=== PATIENT | female | born 1935 | race Caucasian/White ===

== ENCOUNTER 2016-09-21 11:13 | Outpatient (CLI) ==
[2016-02-17 16:18] VITALS: BMI 15.2
--- NOTE | 2016-09-21 11:53 | DI ---
EXAM: Three views of the left hand. History: Left hand pain and trauma. Findings: No acute fracture or dislocation. Moderate to severe narrowing of the first carpal metac arpal joint. Mild to moderate narrowing of the joints seen elsewhere with small osteophytes of the DIP joints. Impression: No acute osseous abnormality. Arthritis.
== END 2016-09-21 11:14 | disposition home or self-care (01) ==
LOC: RAD 11:13
PROVIDERS: ATTEND Internal Medicine
DX: M79.642 Pain in left hand (principal)

== ENCOUNTER 2023-10-07 10:39 | Observation (INO) ==
--- NOTE | 2023-10-07 10:46 | ED.PDOC ---
General ED Provider: Dr. ARYAN DRAKE MD Chief Complaint: Weakness Stated Complaint: Patient presents to ER from home accompanied by her friend (Shaneka Holcomb) with concern of recurrent falls. Patient is a poor historian due to advanced dementia. Upon chart review, most recent MMSE was 10 out of 30 on 06/17/2023. Patient's friend notes that this has significantly worsened in the past couple weeks once her was placed on hospice. Says she was contacted by her 's hospice nurse with concern of patient having a fall yesterday and striking her head. Patient denies pain at this time except for bilateral hip pain. Patient's friend reports she has a history of arthritis and is supposed to be using a front wheeled walker at home but very rarely does due to severe dementia. No other complaints at this time. Time Seen by Provider: 10/07/23 11:10 Mode of Arrival: Wheelchair Information Source: Patient and Other (Friend) Exam Limitations: Dementia (Severe) Primary Care Provider: SHAD CRUZ MD Nursing and Triage Documentation Reviewed and Agree: Yes What is Opioid Naive?: *Opioid Naive implies the patient is not already taking opioids or not chronically receiving opioids on a daily basis. *PRN dosing is not "usually" associated with tolerance. *Patients are at higher risk of over-sedation and aspiration. What is Opioid Tolerant?: *Opioid Tolerance implies less than the expected response to an opioid. *Acquired tolerance is defined by the patient taking 60mg of oral morphine daily (or equianalgesic dose of another opioid) for 1 week or more. *Often associated with chronic pain. *May take more than usual dose to achieve desired pain control. Review of Systems Review Of Systems Constitutional: Reports No symptoms All Other Systems: Reviewed and Negative (Except for those listed in the HPI.) [facility] Medical History Mass of right lung History/ with consolidation R91.8 - Other nonspecific abnormal finding of lung field (ICD-10) Anxiety F41.9 - Anxiety disorder, unspecified (ICD-10) Family History Mother No problems noted. FATHER No problems noted. Other No known health problems Social History Smoking and tobacco status: Current some day smoker Tobacco type: cigarettes Tobacco: How many years used: 5 Quit status: not considering quitting Alcohol intake: never Substance use type: does not use Special arelis needs: No Agree to transfusion: Yes Adopted: No Caregiver/support person: No Foster care: No Household members: spouse and family Housing: house Marital status: M Lives independently: Yes Number of children: 3 service: No Current occupational status: retired History of recent travel: No Do you think of yourself as: straight/heterosexual Current gender identity: female Seatbelt use: always Drives intoxicated or rides with intoxicated driver utility worker: No Water heater temperature set < 120 degrees: Yes Working smoke detector in home: Yes Fire extinguisher in home: Yes Carbon monoxide detector in home: No Surgical History Hx of hysterectomy Z90.710 - Acquired absence of both cervix and uterus (ICD-10) Female Reproductive History Menstrual Hx Hysterectomy: No Hx Tubal Ligation: Yes Physical Exam Physical Exam Appearance: Reports Ill-appearing (Chronic), No pain distress and Well-nourished Ill-appearing: Mild Pain Distress: None Eyes: Reports HERMELINDA and EOMI ENT: Reports Ears normal, Nose normal and Oropharynx normal Neck: Supple Respiratory: Reports Airway patent, Breath sounds clear, Breath sounds equal and Respirations nonlabored Cardiovascular: Reports RRR and Pulses normal GI/: Reports Soft and Nontender Musculoskeletal: Reports ROM intact, No edema and Limited strength (BLE: 3/5 strength) Skin: Reports Warm, Dry and Normal color Neurological: Reports Sensation intact, Motor intact, Alert and Oriented Psychiatric: Reports Affect appropriate and Mood appropriate Course Course 10/07/23 12:02 10/07/23 12:02 Orders, Labs, Meds: Lab Review 10/07/23 10/07/23 10/07/23 12:02 13:00 13:12 WBC 11.22 H RBC 4.63 Hgb 14.7 Hct 46.1 MCV 99.6 H MCH 31.7 H MCHC 31.9 RDW Coeff of Gracie 13.2 Plt Count 210 Immature Gran % (Auto) 0.3 Neut % (Auto) 82.2 H Lymph % (Auto) 10.2 Glascock % (Auto) 6.8 Eos % (Auto) 0.1 Baso % (Auto) 0.4 Neut # (Auto) 9.2 H Lymph # (Auto) 1.1 Glascock # (Auto) 0.8 Eos # (Auto) 0.0 Baso # (Auto) 0.0 Immature Gran # (Auto) 0.0 Sodium 137.0 Potassium 4.10 Chloride 99.0 Carbon Dioxide 28.0 Anion Gap 14.10 BUN 13.0 Creatinine 0.50 L Estimated GFR (MDRD) 117.00 BUN/Creatinine Ratio 26.00 Glucose 115.0 H Calcium 9.00 Total Bilirubin 0.90 AST 36.0 ALT 22.0 Alkaline Phosphatase 140.0 Total Protein 7.50 Albumin 3.70 Globulin 3.80 Albumin/Globulin Ratio 0.97 Urine Color Dark Urine Clarity Clear Urine pH 6.5 Ur Specific Fourmile >=1.030 Urine Protein 3+ H Urine Glucose (UA) Negative Urine Ketones 2+ H Urine Blood Trace-intact H Urine Nitrite Negative Urine Bilirubin 1+ H Urine Urobilinogen 4.0 H Ur Leukocyte Esterase Negative Urine Microscopic RBC 5-10 Urine Microscopic WBC 2-5 Ur Squamous Epith Cells 10-20 Ur Renal Epithelial Cell 0-2 Amorphous Sediment Trace Urine Bacteria 1+ Hyaline Casts 0-2 Granular Casts 0-2 Urine Mucus Trace SARS CoV-2 RNA Rapid SHABANA Negative Orders Category Date Time Status PLACE PATIENT OBSERVATION .TO MEDSURG (MONITORED BED ADMISSION 10/07/23 14:24 Active ) ACTIVITY .Up With Assistance CARE 10/07/23 14:24 Active INTAKE & OUTPUT Q8HR CARE 10/07/23 14:24 Active TELEMETRY MONITORING TELE CARE 10/07/23 14:24 Active VITAL SIGNS Q4HR CARE 10/07/23 14:24 Active CARDIAC DIET DIETARY 10/07/23 Dinner Ordered Orthostatic Vital Signs [ED ORTHOSTATIC VITAL SIGNS] . EMERGENCY 10/07/23 11:18 Active ONCE CBC W/ AUTO DIFF DAILY@0600 LAB 10/08/23 06:00 Ordered CBC W/ AUTO DIFF DAILY@0600 LAB 10/09/23 06:00 Ordered CBC W/ AUTO DIFF Stat LAB 10/07/23 12:02 Completed CMP [COMPREHENSIVE METABOLIC PANEL] Stat LAB 10/07/23 12:02 Completed COMPREHENSIVE METABOLIC PANEL DAILY@0600 LAB 10/08/23 06:00 Ordered COMPREHENSIVE METABOLIC PANEL DAILY@0600 LAB 10/09/23 06:00 Ordered COVID [SARS COV-2 RNA RAPID SHABANA] Stat LAB 10/07/23 13:12 Completed URINALYSIS C & S IF INDICATED Stat LAB 10/07/23 13:00 Completed URINE CULTURE Stat LAB 10/07/23 13:00 Received Acetaminophen [Tylenol] Meds 10/07/23 14:24 Active 650 mg PO Q4H PRN Ondansetron HCl/Pf [Zofran 4 mg/2 ml] Meds 10/07/23 14:24 Active 4 [address] IVP Q[address]H PRN [address] HEAD W/O CONTRAST Stat RADS 10/07/23 11:10 Completed PELVIS & KATIE HIPS Stat RADS 10/07/23 11:10 Completed Medications Generic Name Dose Route Start Last Admin Trade Name Freq PRN Reason Stop Dose Admin Acetaminophen 650 mg 10/07/23 14:24 Acetaminophen 325 Mg Tablet PO Q4H PRN Mild Pain Olanzapine 5 mg 10/07/23 14:59 Olanzapine 10 Mg Vial IM ONCE PRN Agitation Ondansetron HCl 4 mg 10/07/23 14:24 Ondansetron Hcl/Pf 4 Mg/2 Ml Sdv IVP Q6H PRN Nausea / [place] [address] Report : [id number] Signed Patient: KARMEN CHUA Acct:[id number] Medical Record: [id number] : 1935 Loc: ED Room/Bed: Age/Sex: 87 / F ADM Status: REG ER Date of Service: 10/07/23 Ordering Physician: ARYAN DRAKE MD Procedure(s): CT HEAD W/O CONTRAST Report Number(s): [id number] Accession Number(s): [id number] cc: SHAD CRUZ MD; ARYAN DRAKE MD EXAM: CT HEAD WITHOUT CONTRAST TECHNIQUE: Noncontrast CT of the head with multiple reformats. HISTORY: Fall injury COMPARISON: 08/25/2021 FINDINGS: Ventricular size mildly prominent but proportional to involutional changes. Atrophy which is global. White matter attenuation changes likely secondary to chronic small vessel ischemia. Appears progressed or more apparent compared to 08/25/2021. Christopher-white matter interfaces are preserved with no evidence of acute infarct. No evidence of intracranial hemorrhage. No midline shift or mass effect. No ectopia. Paranasal sinuses are clear. Mastoid opacification is present on the right. Appears chronic. Orbital contents are normal. The calvarium is intact. IMPRESSION: 1. Atrophy 2. White matter attenuation likely secondary to chronic small vessel ischemia. 3. No acute intracranial findings. 4. Chronic partial opacification mastoid air cells right side. All CT scans are performed using dose optimization techniques as appropriate to the performed exam and includes at least one of the following: Automated exposure control, adjustment of the mA and/or kV according to size, and the use of iterative reconstruction technique. All CT scans are performed using dose optimization techniques as appropriate to the performed exam and include at least one of the following: Automated exposure control, adjustment of the mA and/or kV according to size, and the use of iterative reconstruction technique. Dictated By: MARIO CHENG MD Signed By: MARIO CHENG MD Dictated Date/Time: 10/07/23 1215 Transcribed Date/Time: 10/07/23 1215 Signed Date/Time: 10/07/[address] [place] [address] Diagnostic Imaging Diagnostic Imaging Report : [id number] Signed Patient: KARMEN CHUA Acct:[id number] Medical Record: [id number] : 1935 Loc: ED Room/Bed: Age/Sex: 87 / F ADM Status: REG ER Date of Service: 10/07/23 Ordering Physician: ARYAN DRAKE MD Procedure(s): PELVIS & KATIE HIPS Report Number(s): [id number] Accession Number(s): [id number] cc: SHAD CRUZ MD; ARYAN DRAKE MD EXAM: X-RAY 4 VIEWS OF THE PELVIS AND BILATERAL HIP. HISTORY: Pain status post injury . COMPARISON: None. FINDINGS: No acute fracture or dislocation. No trabecular disruption or cortical offset in the femoral neck to suggest fracture. The bilateral femoral heads are located in the osseous acetabulum. A calcified structure is present involving the left side of the pelvis, likely representing calcified uterine fibroid. Joint space narrowing is seen with osteophyte formation. Decreased mineralization is seen. IMPRESSION: No acute fracture or dislocation. Mild degenerative changes involving both hips. Dictated By: MARKO SALDANA Signed By: MARKO SALDANA Dictated Date/Time: 10/07/23 1227 Transcribed Date/Time: 10/07/23 1227 Signed Date/Time: 10/07/23 1233 Vital Signs: Temp Pulse Resp BP Pulse Ox 10/07/23 11:21 98.3 F 100 20 150/111 H 95 11:52 - Attempted to contact pt's next-of-kin (: Yoseph Chua) who helps with medical decision making. His brother (Devaughn Chua) answered the phone and notified me that his brother is no longer conscious and is dying from metastatic cancer while receiving hospice care. 11:53 - Spoke with pt's secondary geriatric personal care aide (Nolviaeleuterio FraireJarrell) who is the daughter of Devaughn Chua regarding pt's care. She states she no longer is involved in helping pt at this time. 12:54 - Spoke with on-call hospitalist (CEM Hernandez) regarding pt status and current workup and management for generalized weakness. Agreed to obs admission for further workup and management. Discharge Plan Discharge Patient Disposition: PLACED OBSERVATION Discharge Problem: Generalized weakness Did you review [place] [employer] WORKER for ALL controlled substances?: Not Applicable ED Provider: ARYAN DRAKE Condition: Good Physician Progress Note: []
[2023-10-07 12:08] LABS: BASOPHILS % (AUTO) 0.4 % (0.0-3.0); EOSINOPHILS % (AUTO) 0.1 % (0.0-7.0); HEMATOCRIT 46.1 % (37.0-47.0); HEMOGLOBIN 14.7 g/dl (12.0-16.0); IMMATURE GRANULOCYTE % (AUTO) 0.3 % (0.0-5.0); LYMPHOCYTES # (AUTO) 1.1 K/uL (0.60-3.4); LYMPHOCYTES % (AUTO) 10.2 (10.0-50.0); MEAN CORPUSCULAR HEMOGLOBIN 31.7 pg (27.0-31.0); MEAN CORPUSCULAR HGB CONC 31.9 (31.8-35.4); MEAN CORPUSCULAR VOLUME 99.6 fl (81.0-99.0); MONOCYTES # (AUTO) 0.8 K/uL (0.4-2.0); MONOCYTES % (AUTO) 6.8 (0-10); NEUTROPHILS # (AUTO) 9.2 K/ul (2.0-6.9); NEUTROPHILS % (AUTO) 82.2 % (42.2-75.2); PLATELET COUNT 210 10^3/uL (140-440); RDW COEFFICIENT OF VARIATION 13.2 % (11.6-14.8); RED BLOOD COUNT 4.63 10^6/ul (4.20-5.40); WHITE BLOOD COUNT 11.22 K/ul (4.6-10.2)
[2023-10-07 12:21] LABS: ALBUMIN 3.7 g/dL (3.5-5.0); BILIRUBIN,TOTAL 0.9 mg/dL (0.2-1.3); CREATININE 0.5 mg/dL (0.60-1.30); POTASSIUM 4.1 mmol/L (3.5-5.1); TOTAL PROTEIN 7.5 g/dL (6.3-8.2)
--- NOTE | 2023-10-07 12:27 | CT ---
EXAM: CT HEAD WITHOUT CONTRAST TECHNIQUE: Noncontrast CT of the head with multiple reformats. HISTORY: Fall injury COMPARISON: 08/25/2021 FINDINGS: Ventricular size mildly prominent but proportional to involutional changes. Atrophy which is global. White matter attenuation changes likely secondary to chronic small vessel ischemia. Appears progres sed or more apparent compared to 08/25/2021. Christopher-white matter interfaces are preserved with no evide nce of acute infarct. No evidence of intracranial hemorrhage. No midline shift or mass effect. No ectopia. Paranasal sinuses are clear. Mastoid opacification is present on the right. Appears chron ic. Orbital contents are normal. The calvarium is intact. IMPRESSION: 1. Atrophy 2. White matter attenuation likely secondary to chronic small vessel ischemia. 3. No acute intracranial findings. 4. Chronic partial opacification mastoid air cells right side. All CT scans are performed using dose optimization techniques as appropriate to the performed exam an d includes at least one of the following: Automated exposure control, adjustment of the mA and/or kV according to size, and the use of iterative reconstruction technique. All CT scans are performed using dose optimization techniques as appropriate to the performed exam an d include at least one of the following: Automated exposure control, adjustment of the mA and/or kV according t o size, and the use of iterative reconstruction technique.
--- NOTE | 2023-10-07 12:33 | DI ---
EXAM: X-RAY 4 VIEWS OF THE PELVIS AND BILATERAL HIP. HISTORY: Pain status post injury . COMPARISON: None. FINDINGS: No acute fracture or dislocation. No trabecular disruption or cortical offset in the femor al neck to suggest fracture. The bilateral femoral heads are located in the osseous acetabulum. A c alcified structure is present involving the left side of the pelvis, likely representing calcified ut erine fibroid. Joint space narrowing is seen with osteophyte formation. Decreased mineralization is seen. IMPRESSION: No acute fracture or dislocation. Mild degenerative changes involving both hips.
[2023-10-07 13:05] LABS: BILIRUBIN,URINE 1+ (NEGATIVE); CLARITY,URINE Clear (CLEAR); COLOR,URINE Dark (YELLOW); GLUCOSE, URINE (UA) Negative (NEGATIVE); KETONES,URINE 2+ (NEGATIVE); LEUKOCYTE ESTERASE ,URINE Negative (NEGATIVE); NITRITE,URINE Negative (NEGATIVE); PH,URINE 6.5 (5-9); PROTEIN,URINE 3+ (NEGATIVE); URINE, BLOOD Trace-intact (NEGATIVE)
[2023-10-07 13:20] LABS: AMORPHOUS SEDIMENT,UR TRACE (NOT PRESENT); BACTERIA,URINE 1+ (NOT PRESENT); GRANULAR CASTS,URINE 0-2 (NOT PRESENT); HYALINE CASTS, URINE 0-2 (NOT PRESENT); MUCUS,URINE TRACE (NOT PRESENT); RENAL EPITHELIAL CELLS,URINE 0-2 (NOT PRESENT)
[2023-10-07 14:11] LABS: SARS COV-2 RNA RAPID NAAT NEGATIVE (NEGATIVE)
[2023-10-07] MEDS ORDERED: ZOFRAN 4 MG/2 ML IVP PRN (14:24)
--- NOTE | 2023-10-07 14:34 | PCM ---
Date of Service Date Seen by Provider: 10/07/23 Time Seen by Provider: 13:00 Admit Day/Time Admission Date: 10/07/23 Admission Time: 14:24 Reason for Admission Chief Complaint: WEAKNESS,FALLS Hospital Provider Hospital Provider: Rhona Holly PA-C, [facility] [place] Primary Care Physician: SHAD CONCEPCION MD History of Present Illness History of Present Illness: The patient is an 87-year-old female with past medical history of A-fib, dementia, hyperlipidemia, chronic anemia, hypertension, COPD, anxiety who presents from home with a friend Shaneka for worsening dementia and falls. The patient lives at home with her who is unfortunately dying from metastatic cancer. He is currently under hospice care and is reportedly unconscious and unable to make decisions at this time. The patient, Maria R, has had a very significant decline in her mentation in the last few weeks with all of this going on. Per Shaneka, she has had multiple falls yesterday witnessed by the hospice nurse. She hit her head. She was very frantic and spiraling over them moving furniture in the home to rearrange her 's bed. She was threatening to burn the house down. She has been difficult to redirect. In the ER she had a CT of the head and x-ray of the pelvis which were unremarkable. Labs unremarkable. UA did not show infection. On my evaluation the patient initially is able to track with conversation but is quickly confused and unable to give any details. She is aware that her is at home and very sick however she does not bring up that he has cancer. She also states that he is home alone and needs her to help him however he does have 24-hour care at this time. She refers to the other lady in the room with us as surely although her name is Shaneka. The patient is unable to tell me any of her past medical history or what current medications she takes. She does not recall any falls yesterday although they were witnessed by a reliable historian. She is frustrated by being here and asks to speak with her PCP Dr. Concepcion however later she refers to him as Dr. Burr. Shaneka has concerns about her safety at home. Spoke with Blas, the patient's [id number]. He states that he signed paperwork today to become the POA over it, the patient's who is on hospice since he nor Maria R can make decisions any longer. He states that he is helping his brother at this time but will be unable to care for Maria R going forward. He states that the 24-hour care that they have for nolberto at this time will not be sustainable long-term for Maria R. He states that she likely will need to go to a retirement to be safe and have care. She has a daughter but has not been involved with her in a long time and describes her relationship as "volatile." She does have a couple brothers Axel and Ned. Axel is in [place], Ned is nearby. It was decided to admit the patient as there is no safe discharge plan at this time. There is no one that can be responsible for caring for Maria R at home. With her worsening dementia during these recent changes she has become unsafe to be at home. Blas states that he will be a surrogate decision maker if needed. We reached out to Axel the brother in [place] and he does not feel comfortable being a surrogate decision maker due to his age and comorbidities. He suggested reaching out to Ned as he is the "baby of the family". The number given for Ned is not in service. We are also attempting to find a number to reach out to the patient's daughter Leslie as she is technically next of kin. If all fails, Jos fuentes is agreeable. Case Discussed With Case Discussed With: Patient's case was discussed with the ER Physicians, Dr. Rosa. [facility] Medical History Mass of right lung History/ with consolidation R91.8 - Other nonspecific abnormal finding of lung field (ICD-10) Anxiety F41.9 - Anxiety disorder, unspecified (ICD-10) Surgical History Hx of hysterectomy Z90.710 - Acquired absence of both cervix and uterus (ICD-10) Family History Mother No problems noted. FATHER No problems noted. Other No known health problems Social History Smoking and tobacco status: Current some day smoker Tobacco type: cigarettes Tobacco: How many years used: 5 Quit status: not considering quitting Alcohol intake: never Substance use type: does not use Special arelis needs: No Agree to transfusion: Yes Adopted: No Caregiver/support person: No Foster care: No Household members: spouse and family Housing: house Marital status: M Lives independently: Yes Number of children: 3 service: No Current occupational status: retired History of recent travel: No Do you think of yourself as: straight/heterosexual Current gender identity: female Seatbelt use: always Drives intoxicated or rides with intoxicated driver/refuse collector: No Water heater temperature set < 120 degrees: Yes Working smoke detector in home: Yes Fire extinguisher in home: Yes Carbon monoxide detector in home: No Allergies Allergies Allergy/AdvReac Type Severity Reaction Status Date / Time No Known Allergies Allergy Verified 10/07/23 11:15 Current Medications Home Medications mecobalamin (vitamin B12) 1,000 mcg chewable tablet 1,000 mcg PO QDAY 06/17/23 [History Confirmed 10/07/23 Last Taken Unknown] hydrocodone 5 mg-acetaminophen 325 mg tablet 0.5 tab PO BID PRN pain #45 tabs 08/25/23 [Rx Confirmed 10/07/23 Last Taken Unknown] diltiazem HCl 30 mg tablet See Rx Instructions .Route .COMPLEX #60 tabs 09/02/23 [Rx Confirmed 10/07/23 Last Taken Unknown] donepezil 5 mg tablet (Aricept) 5 mg PO QDAY #30 tabs 09/02/23 [Rx Confirmed 10/07/23 Last Taken Unknown] duloxetine 30 mg capsule,delayed release See Rx Instructions .Route .COMPLEX #30 caps 09/02/23 [Rx Confirmed 10/07/23 Last Taken Unknown] gabapentin 100 mg capsule See Rx Instructions .Route .COMPLEX #60 caps 09/02/23 [Rx Confirmed 10/07/23 Last Taken Unknown] memantine 10 mg tablet 10 mg PO QPM #30 tabs 09/02/23 [Rx Confirmed 10/07/23 Last Taken Unknown] alprazolam 0.25 mg tablet 0.25 mg PO QHS PRN anxiety #15 tabs 10/05/23 [Rx Confirmed 10/07/23 Last Taken Unknown] apixaban 2.5 mg tablet (Eliquis) See Rx Instructions .Route .COMPLEX #60 tabs 10/05/23 [Rx Confirmed 10/07/23 Last Taken Unknown] Home Acetaminophen (Acetaminophen 325 Mg Tablet) 650 mg PO Q4H PRN PRN Reason: Mild Pain Olanzapine (Olanzapine 10 Mg Vial) 5 mg IM ONCE PRN PRN Reason: Agitation Ondansetron HCl (Ondansetron Hcl/Pf 4 Mg/2 Ml Sdv) 4 mg IVP Q6H PRN PRN Reason: Nausea / Vomiting Opioid Naive vs. Tolerant Does Patient Take Opioids?: Yes Is Patient Opioid Naive?: No What is Opioid Naive?: *Opioid Naive implies the patient is not already taking opioids or not chronically receiving opioids on a daily basis. *PRN dosing is not "usually" associated with tolerance. *Patients are at higher risk of over-sedation and aspiration. Is Patient Opioid Tolerant?: No What is Opioid Tolerant?: *Opioid Tolerance implies less than the expected response to an opioid. *Acquired tolerance is defined by the patient taking 60mg of oral morphine daily (or equianalgesic dose of another opioid) for 1 week or more. *Often associated with chronic pain. *May take more than usual dose to achieve desired pain control. Review of Systems Constitutional: Reports Weakness Cardiovascular: Denies Chest pain, Chest Pressure or Edema Respiratory: Denies Cough or Shortness of air Genitourinary: Denies Dysuria or Frequency Neurological: Reports Other (+frequent falls ); Denies Syncope Physical examination Most Recent Vital Signs: Most Recent Vital Signs Temperature 98.3 F 10/07/23 11:21 Temperature Source Oral 10/07/23 11:21 Pulse Rate 100 10/07/23 11:21 Respiratory Rate 20 10/07/23 11:21 Blood Pressure 150/111 H 10/07/23 11:21 O2 Sat by Pulse Oximetry 95 10/07/23 11:21 Height 5 ft 3 in 10/07/23 11:21 Weight 86 lb 10/07/23 11:21 Telemetry Heart Rate 70 08/18/21 19:00 Telemetry SPO2 96 02/19/16 07:00 Appearance: Positive No Apparent Distress and Other (+alert, oriented to person and place but becomes confused throughout conversation ) Skin: Positive [place], Warm and Good Turgor; Negative Rashes HEENT: Positive Normocephalic and Atraumatic Neck: Positive Supple and Midline Trachea Chest/Lungs: Positive Clear to Auscultation Bilaterally; Negative Rales, Rhonci or Wheezes Heart: Positive Irregular Rhythm GI/: Positive Soft, Nontender, Bowel Sounds Normal and No Distention Extremities: Negative Edema Neurological: Positive Cranial Nerves Intact, Alert, Disorinted and Other (+generalized weakness ) Psychiatric: Positive Other (+oriented to person and place, but then unsure of why she was brought in, doesn't remember falls yesterday or conversations from earlier today, doesn't know who the friend is that brought her in. ) Labs This Visit Labs This Visit: Labs This Visit 10/07/23 10/07/23 10/07/23 12:02 13:00 13:12 WBC 11.22 H RBC 4.63 Hgb 14.7 Hct 46.1 MCV 99.6 H MCH 31.7 H MCHC 31.9 RDW Coeff of Gracie 13.2 Plt Count 210 Immature Gran % (Auto) 0.3 Neut % (Auto) 82.2 H Lymph % (Auto) 10.2 [place] % (Auto) 6.8 Eos % (Auto) 0.1 Baso % (Auto) 0.4 Neut # (Auto) 9.2 H Lymph # (Auto) 1.1 [place] # (Auto) 0.8 Eos # (Auto) 0.0 Baso # (Auto) 0.0 Immature Gran # (Auto) 0.0 Sodium 137.0 Potassium 4.10 Chloride 99.0 Carbon Dioxide 28.0 Anion Gap 14.10 BUN 13.0 Creatinine 0.50 L Estimated GFR (MDRD) 117.00 BUN/Creatinine Ratio 26.00 Glucose 115.0 H Calcium 9.00 Total Bilirubin 0.90 AST 36.0 ALT 22.0 Alkaline Phosphatase 140.0 Total Protein 7.50 Albumin 3.70 Globulin 3.80 Albumin/Globulin Ratio 0.97 Urine Color Dark Urine Clarity Clear Urine pH 6.5 Ur Specific [place] >=1.030 Urine Protein 3+ H Urine Glucose (UA) Negative Urine Ketones 2+ H Urine Blood Trace-intact H Urine Nitrite Negative Urine Bilirubin 1+ H Urine Urobilinogen 4.0 H Ur Leukocyte Esterase Negative Urine Microscopic RBC 5-10 Urine Microscopic WBC 2-5 Ur Squamous Epith Cells 10-20 Ur Renal Epithelial Cell 0-2 Amorphous Sediment Trace Urine Bacteria 1+ Hyaline Casts 0-2 Granular Casts 0-2 Urine Mucus Trace SARS CoV-2 RNA Rapid SHABANA Negative Imaging Imaging: EXAM: CT HEAD WITHOUT CONTRAST TECHNIQUE: Noncontrast CT of the head with multiple reformats. HISTORY: Fall injury COMPARISON: 08/25/2021 FINDINGS: Ventricular size mildly prominent but proportional to involutional changes. Atrophy which is global. White matter attenuation changes likely secondary to chronic small vessel ischemia. Appears progressed or more apparent compared to 08/25/2021. Christopher-white matter interfaces are preserved with no evidence of acute infarct. No evidence of intracranial hemorrhage. No midline shift or mass effect. No ectopia. Paranasal sinuses are clear. Mastoid opacification is present on the right. Appears chronic. Orbital contents are normal. The calvarium is intact. IMPRESSION: 1. Atrophy 2. White matter attenuation likely secondary to chronic small vessel ischemia. 3. No acute intracranial findings. 4. Chronic partial opacification mastoid air cells right side. EXAM: X-RAY 4 VIEWS OF THE PELVIS AND BILATERAL HIP. HISTORY: Pain status post injury . COMPARISON: None. FINDINGS: No acute fracture or dislocation. No trabecular disruption or cortical offset in the femoral neck to suggest fracture. The bilateral femoral heads are located in the osseous acetabulum. A calcified structure is present involving the left side of the pelvis, likely representing calcified uterine fibroid. Joint space narrowing is seen with osteophyte formation. Decreased mineralization is seen. IMPRESSION: No acute fracture or dislocation. Mild degenerative changes involving both hips. Review Statement Review Statement: I have independently reviewed and interpreted the labs/EKGs/imaging that were ordered by the ER provider. I have reviewed all outside records that are available currently in our EMR including imaging/notes/labs from previous visits. Plan Plan: 1. Weakness with frequent falls - Imaging negative, pt/ot ordered. 2. Worsening dementia - Likely worsened due to patient's husbands worsening condition and changes at home. Cont home meds. 3. Hypertension - Cont home meds 4. A fib - Cont home meds DVT Prophylaxis: Eliquis Time Spent: Greater than 80 minutes spent with patient, 50% of the time spent with this patient was devoted to counseling and coordination of care. Advanced Care Plannin minutes spent discussing advance care planning. Admit to: Obs Disposition: Patient would benefit from therapy to become stronger and lessen her fall risk. She also has no safe discharge plan at this time. Discussed Plan of Care with Dr. Tre Concepcion. Update: bakery worker conveyor line was able to contact the daughter, Leslie, next of kin. She is agreeable to be a surrogate decision maker at this time. She will come in to fill out the form tomorrow morning. Medications Medication Orders: Medications Ordered Category Date Time Status Acetaminophen [Tylenol] Meds 10/07/23 14:24 Ordered 650 mg PO Q4H PRN Ondansetron HCl/Pf [Zofran 4 mg/2 ml] Meds 10/07/23 14:24 Ordered 4 mg IVP Q6H PRN
[2023-10-07 15:20] VITALS: BMI 16.5
--- NOTE | 2023-10-07 16:25 | RS.PTINEVL ---
Subjective Patient information Date of Evaluation: 10/07/23 Date of Arrival on Unit: 10/07/23 Admitted From:: Emergency Dept Diagnosis: frequent falls, advanced dementia Usual Living Arrangement: With Spouse Living Arrangement Comments: lives with who is on hospice Home Environment: House Medical History: Hypertension, COPD, Dementia and Arthritis Medical History Comments:: afib, LATEX ALLERGY?: No Medications: see chart Subjective Information/ Patient Comments:: pt pleasant and very talkative. pt states brought her to hospital and is going to get her some pajamas. ( is on hospice) pt reports she falls and she is not sure why. States that she takes care of her house and doesn't need help at home. Level of function Abilities prior to this admission: pt is poor historian. per nursing hospice nurse states pt is not safe at home at this time falling frequently and doesn't remember to use walker. Current Level of Function: Partially Dependent Current Equipment Used at Home: walker, cane Pain Assessement Location BLE: Description: Aching Pain Behavior: Rubbing Site and Facial Grimacing Pain Aggravating Factors: Walking Effects of Pain: pt c/o pain but unable to rate Interventions Objective Patient Orientation: Person Current Interventions: Telemetry Observation: pt frail appearing. pt is talkative, confused regarding situation, place. Range of Motion ROM Right Upper Extremity AROM: WFL's Left Upper Extremity AROM: WFL's Right Lower Extremity AROM: WFL's Left Lower Extremity AROM: WFL's Muscle Strength Muscle Strength Right Upper Extremity: Mild Weakness (approx 4-/5) Left Upper Extremity: Mild Weakness (approx 4-/5) Right Lower Extremity: Mild Weakness (hip flex 4-/5, ,knee flex/ext 4/5, ankle 4/5 ) Left Lower Extremity: Mild Weakness (hip flex 4-/5, ,knee flex/ext 4/5, ankle 4/5 ) Comments:: difficult to fully MMT due to pt difficulty following commands. Sensation Sensation Right Upper Extremity: Intact/Normal Left Upper Extremity: Intact/Normal Right Lower Extremity: Intact/Normal Left Lower Extremity: Intact/Normal Palpation Palpation Findings: Tenderness (B thighs) Balance Sitting Balance and Reactions Static Sitting Balance: Fair (fair+) Dynamic Sitting Balance: Fair Standing Balance and Reactions Static Standing Balance: Poor Dynamic Standing Balance: Poor Functional Mobility Bed Mobility Rolling R/L: CGA Scooting: Mod Assist and 2 person assist Supine to Sit: Min Assist and 1 person assist Sit to Supine: CGA Transfers Sit to Stand: CGA, Min Assist and 1 person assist Stand to Sit: CGA, Min Assist and 1 person assist Safety Awareness Safety Awareness: Poor MATT INDEX SCORE: n/a Ambulation Ambulation Assistive Device Used: Rolling Walker Orthotic/Prosthetic Device: No Distance: 55ft Assistance needed with Ambulation: Min Assist and 1 person assist Gait Deviations: Narrow Based gait, Forward posture, Short stride and Deviates from path Ambulation Comments: pt required assist to manage rwx and to remain on path. pt c/o BLE pain while walking Factors Affecting Ambulation: Decreased Balance, Pain, Weakness, Decreased Coordination, Decreased Safety, Cognitive Status and Limited Endurance Treatment time Time with patient Length of Evaluation: 19 Total treatment time: 31 Patient Education Education Patient Education: Activity Modification and Education of Plan of Care Teaching Recipient: Patient Teaching Methods: Discussion Comments: discussion with pt's nurse regarding possible dc plans Assessment Assessment Problem List:: Decreased level of function, Requires training/education, Decreased safety/Risk of falls, Weakness, Pain limits previous level of function and Cognitive status limits abilities Rehab Potential: Fair Further Therapy Indicated?: Yes Candidate for Swing Bed for Therapy Services?: Feel pt is not a candidate for swing bed due to pt's advanced dementia. Comments: Feel pt would benefit from adjunct faculty for medical terminology care for supervision due to advanced dementia. pt is high fall risk as well as wandering risk. Evaluation Complexity: HISTORY: Medium, EXAM OF BODY SYSTEMS: Medium, CLINICAL PRESENTATION: Medium and CLINICAL DECISION MAKING: Medium Patient's Goal(s): pt unable to express goals, except that she wants to get back home. Plan Other:: eval only, Feel pt would benefit from ambulating in hallway with nursing. Frequency of Treatment: One time treatment Duration of Treatment: One Time Treatment Anticipated Discharge Destination: Shift Nurse Manager Care Facility Treatment Diagnosis (ICD 10 Codes): impaired balance R 26.81 gait difficulty R 26.2 weakness M62.81 Has the Physician been added for Co-signature?: Yes
[2023-10-07] MEDS: TYLENOL PO PRN (16:33)
[2023-10-07] MEDS: ZYPREXA IM PRN (17:25)
--- NOTE | 2023-10-07 19:03 | DI ---
EXAM: CHEST ONE-VIEW History: Tachypnea FINDINGS: Compared with 08/25/2021. Normal cardiomediastinal contours. Normal pulmonary vasculatur e. Reticular opacities in the lungs, right greater than left. Consolidative change in the right mid lung and right lower lobe also seen on prior. No acute chest wall abnormality. Impression: Underlying chronic obstructive pulmonary disease and scarring Consolidative change in the right lung suspect for pneumonia
[2023-10-07] MEDS: ARICEPT PO SCH (19:27)
[2023-10-07] MEDS: CYMBALTA PO SCH (19:27)
[2023-10-07] MEDS ORDERED: ZYPREXA IM PRN (21:19)
[2023-10-07] MEDS: LEVAQUIN 750 MG/150 ML D5W 750 MG/150 ML BAG IV SCH (21:47)
[2023-10-07] MEDS: XANAX PO SCH (23:02)
[2023-10-07] MEDS: NEURONTIN PO SCH (23:02)
[2023-10-07] MEDS: NAMENDA PO SCH (23:02)
[2023-10-07] MEDS: CARDIZEM PO SCH (23:02)
[2023-10-07] MEDS: ELIQUIS PO SCH (23:02)
[2023-10-08 05:33] LABS: BASOPHILS % (AUTO) 0.2 % (0.0-3.0); EOSINOPHILS # (AUTO) 0.1 K/ul (0.0-0.7); EOSINOPHILS % (AUTO) 0.9 % (0.0-7.0); HEMATOCRIT 47.1 % (37.0-47.0); HEMOGLOBIN 14.9 g/dl (12.0-16.0); IMMATURE GRANULOCYTE % (AUTO) 0.3 % (0.0-5.0); LYMPHOCYTES # (AUTO) 2.2 K/uL (0.60-3.4); LYMPHOCYTES % (AUTO) 22.4 (10.0-50.0); MEAN CORPUSCULAR HEMOGLOBIN 31.6 pg (27.0-31.0); MEAN CORPUSCULAR HGB CONC 31.6 (31.8-35.4); MEAN CORPUSCULAR VOLUME 99.8 fl (81.0-99.0); MONOCYTES # (AUTO) 0.8 K/uL (0.4-2.0); MONOCYTES % (AUTO) 8.5 (0-10); NEUTROPHILS # (AUTO) 6.7 K/ul (2.0-6.9); NEUTROPHILS % (AUTO) 67.7 % (42.2-75.2); PLATELET COUNT 258 10^3/uL (140-440); RDW COEFFICIENT OF VARIATION 13.1 % (11.6-14.8); RED BLOOD COUNT 4.72 10^6/ul (4.20-5.40); WHITE BLOOD COUNT 9.89 K/ul (4.6-10.2)
[2023-10-08 05:48] LABS: ALANINE AMINOTRANSFERASE 19.9 U/L (0-35); ALBUMIN 3.51 g/dL (3.5-5.0); ALKALINE PHOSPHATASE 125.1 U/L (53-141); ASPARTATE AMINO TRANSFERASE 32.4 U/L (14-36); BILIRUBIN,TOTAL 0.89 mg/dL (0.2-1.3); BLOOD UREA NITROGEN 11.5 mg/dL (7-17); CALCIUM 9.13 mg/dL (8.4-10.2); CREATININE 0.58 mg/dL (0.60-1.30); GLUCOSE 100.9 mg/dL (74-106); POTASSIUM 3.51 mmol/L (3.5-5.1); SODIUM 139.4 mmol/L (134.5-145); TOTAL PROTEIN 7.04 g/dL (6.3-8.2)
[2023-10-08] MEDS: NORCO 5-325 PO PRN (07:37)
[2023-10-08] MEDS: CYMBALTA PO SCH (09:10)
[2023-10-08] MEDS: ELIQUIS PO SCH (09:12)
--- NOTE | 2023-10-08 09:14 | PCM.PROG ---
Date/Time Seen Date Seen by Provider: 10/08/23 Time Seen by Provider: 08:40 Provider Provider: RHONA HOLLY PA-C, [facility] Chief Complaint Chief Complaint: WEAKNESS,FALLS Subjective Subjective: Patient required zyprexa yesterday evening due to agitation. She slept well through the night. She was noted to have increased RR and HR. Pt has likely been without her home medications for unknown period of time. CXR showed possible pna. Levaquin started. She's also required some O2 through the night. This morning patient is much more pleasant, enjoying her coffee. Daughter present this morning to sign healthcare surrogate paperwork. Objective Appearance: Positive No Apparent Distress, Thin and Other (+alert, oriented to self and place poor insight ) Chest/Lungs: Positive Symmetrical With Equal Breath Sounds, Clear to Auscultation Bilaterally and Other (shallow breaths, increased RR, however very conversational with no dyspnea ); Negative Rales, Rhonci or Wheezes Heart: Positive Irregular Rhythm GI/: Positive Soft, Nontender, Bowel Sounds Normal and No Distention Neurological: Positive Cranial Nerves Intact, Alert and Disorinted Vital Signs Vital Signs: Vital Signs: Last 24 Hours 10/07/23 11:21 10/07/23 14:55 10/07/23 15:01 Temperature 98.3 F 98.5 F Temperature Source Oral Temporal Artery Scan Pulse Rate 100 108 H 116 H Respiratory Rate 20 18 36 H Blood Pressure 150/111 H 159/79 H Blood Pressure Mean Blood Pressure Left Arm 147/83 Blood Pressure Location Blood Pressure Position Supine O2 Sat by Pulse Oximetry 95 94 L 92 L Oxygen Delivery Method Room Air Oxygen Flow Rate Height 5 ft 3 in 5 ft Weight 86 lb 84 lb 14.4 oz Telemetry Type Telemetry Monitoring Irregular Telemetry Rate (Approximate) Telemetry SPO2 EKG QRS Interval Telemetry Strip Reading 10/07/23 15:10 10/07/23 16:00 10/07/23 17:00 Temperature Temperature Source Pulse Rate Respiratory Rate 36 H Blood Pressure Blood Pressure Mean Blood Pressure Left Arm Blood Pressure Location Blood Pressure Position O2 Sat by Pulse Oximetry Oxygen Delivery Method Room Air Room Air Room Air Oxygen Flow Rate Height Weight Telemetry Type Telemetry Monitoring Irregular Telemetry Rate (Approximate) Telemetry SPO2 EKG QRS Interval Telemetry Strip Reading 10/07/23 18:00 10/07/23 18:28 10/07/23 18:40 Temperature 98.4 F Temperature Source Temporal Artery Scan Pulse Rate 106 H Respiratory Rate 36 H Blood Pressure 114/60 Blood Pressure Mean 78 Blood Pressure Left Arm Blood Pressure Location Left Arm Blood Pressure Position Supine O2 Sat by Pulse Oximetry 90 L Oxygen Delivery Method Room Air Room Air Nasal Cannula Oxygen Flow Rate 1 Height Weight Telemetry Type Telemetry Monitoring Irregular Telemetry Rate (Approximate) Telemetry SPO2 EKG QRS Interval Telemetry Strip Reading 10/07/23 19:00 10/07/23 19:00 10/07/23 19:46 Temperature Temperature Source Pulse Rate Respiratory Rate Blood Pressure Blood Pressure Mean Blood Pressure Left Arm Blood Pressure Location Blood Pressure Position O2 Sat by Pulse Oximetry Oxygen Delivery Method Nasal Cannula Nasal Cannula Oxygen Flow Rate Height Weight Telemetry Type Remote Telemetry Telemetry Monitoring Continues Irregular Telemetry Rate (Approximate) 100-110 BPM Telemetry SPO2 EKG QRS Interval 0.06 Telemetry Strip Reading A-FIB WITH RVR 10/07/23 19:47 10/07/23 20:00 10/07/23 20:43 Temperature 97.8 F Temperature Source Temporal Artery Scan Pulse Rate 102 H Respiratory Rate 30 H 32 H Blood Pressure 128/61 Blood Pressure Mean 83 Blood Pressure Left Arm Blood Pressure Location Left Arm Blood Pressure Position Supine O2 Sat by Pulse Oximetry 96 95 Oxygen Delivery Method Nasal Cannula Nasal Cannula Nasal Cannula Oxygen Flow Rate 1 1 1.5 Height Weight Telemetry Type Telemetry Monitoring Irregular Telemetry Rate (Approximate) Telemetry SPO2 EKG QRS Interval Telemetry Strip Reading 10/07/23 21:00 10/07/23 22:00 10/07/23 23:00 Temperature Temperature Source Pulse Rate Respiratory Rate Blood Pressure Blood Pressure Mean Blood Pressure Left Arm Blood Pressure Location Blood Pressure Position O2 Sat by Pulse Oximetry Oxygen Delivery Method Nasal Cannula Nasal Cannula Nasal Cannula Oxygen Flow Rate Height Weight Telemetry Type Telemetry Monitoring Irregular Telemetry Rate (Approximate) Telemetry SPO2 EKG QRS Interval Telemetry Strip Reading 10/08/23 00:00 10/08/23 00:40 10/08/23 00:41 Temperature Temperature Source Pulse Rate Respiratory Rate Blood Pressure Blood Pressure Mean Blood Pressure Left Arm Blood Pressure Location Blood Pressure Position O2 Sat by Pulse Oximetry Oxygen Delivery Method Nasal Cannula Nasal Cannula Oxygen Flow Rate Height Weight Telemetry Type Remote Telemetry Telemetry Monitoring Continues Irregular Telemetry Rate (Approximate) 80-90 BPM Telemetry SPO2 99 EKG QRS Interval 0.06 Telemetry Strip Reading atrial fib 10/08/23 02:00 10/08/23 02:00 10/08/23 03:00 Temperature 97.9 F Temperature Source Temporal Artery Scan Pulse Rate 101 H Respiratory Rate 30 H Blood Pressure 105/68 Blood Pressure Mean 80 Blood Pressure Left Arm Blood Pressure Location Left Arm Blood Pressure Position Supine O2 Sat by Pulse Oximetry 96 Oxygen Delivery Method Nasal Cannula Room Air Room Air Oxygen Flow Rate 1.5 Height Weight Telemetry Type Telemetry Monitoring Irregular Telemetry Rate (Approximate) Telemetry SPO2 EKG QRS Interval Telemetry Strip Reading 10/08/23 04:00 10/08/23 05:00 10/08/23 05:29 Temperature 97.2 F L Temperature Source Temporal Artery Scan Pulse Rate 113 H Respiratory Rate 30 H Blood Pressure 122/94 H Blood Pressure Mean 103 Blood Pressure Left Arm Blood Pressure Location Right Arm Blood Pressure Position Supine O2 Sat by Pulse Oximetry 94 L Oxygen Delivery Method Room Air Room Air Nasal Cannula Oxygen Flow Rate 1.5 Height Weight Telemetry Type Telemetry Monitoring Irregular Telemetry Rate (Approximate) Telemetry SPO2 EKG QRS Interval Telemetry Strip Reading 10/08/23 05:37 10/08/23 06:10 10/08/23 07:00 Temperature Temperature Source Pulse Rate Respiratory Rate Blood Pressure Blood Pressure Mean Blood Pressure Left Arm Blood Pressure Location Blood Pressure Position O2 Sat by Pulse Oximetry 96 Oxygen Delivery Method Nasal Cannula Nasal Cannula Nasal Cannula Oxygen Flow Rate 1 Height Weight Telemetry Type Telemetry Monitoring Irregular Telemetry Rate (Approximate) Telemetry SPO2 EKG QRS Interval Telemetry Strip Reading 10/08/23 07:56 10/08/23 08:54 Temperature Temperature Source Pulse Rate Respiratory Rate Blood Pressure Blood Pressure Mean Blood Pressure Left Arm Blood Pressure Location Blood Pressure Position O2 Sat by Pulse Oximetry Oxygen Delivery Method Nasal Cannula Nasal Cannula Oxygen Flow Rate Height Weight Telemetry Type Telemetry Monitoring Irregular Telemetry Rate (Approximate) Telemetry SPO2 EKG QRS Interval Telemetry Strip Reading Lab Results Lab Results: Lab Results: Last 24 Hours 10/08/23 10/07/23 10/07/23 05:25 13:12 13:00 WBC 9.89 RBC 4.72 Hgb 14.9 Hct 47.1 H MCV 99.8 H MCH 31.6 H MCHC 31.6 L RDW Coeff of Gracie 13.1 Plt Count 258 Immature Gran % (Auto) 0.3 Neut % (Auto) 67.7 Lymph % (Auto) 22.4 [place] % (Auto) 8.5 Eos % (Auto) 0.9 Baso % (Auto) 0.2 Neut # (Auto) 6.7 Lymph # (Auto) 2.2 [place] # (Auto) 0.8 Eos # (Auto) 0.1 Baso # (Auto) 0.0 Immature Gran # (Auto) 0.0 Sodium 139.4 Potassium 3.51 Chloride 100.0 Carbon Dioxide 33.0 H Anion Gap 9.91 BUN 11.5 Creatinine 0.58 L Estimated GFR (MDRD) 99.00 BUN/Creatinine Ratio 19.82 Glucose 100.9 Calcium 9.13 Total Bilirubin 0.89 AST 32.4 ALT 19.9 Alkaline Phosphatase 125.1 Total Protein 7.04 Albumin 3.51 Globulin 3.53 Albumin/Globulin Ratio 0.99 Urine Color Dark Urine Clarity Clear Urine pH 6.5 Ur Specific Juliette >=1.030 Urine Protein 3+ H Urine Glucose (UA) Negative Urine Ketones 2+ H Urine Blood Trace-intact H Urine Nitrite Negative Urine Bilirubin 1+ H Urine Urobilinogen 4.0 H Ur Leukocyte Esterase Negative Urine Microscopic RBC 5-10 Urine Microscopic WBC 2-5 Ur Squamous Epith Cells 10-20 Ur Renal Epithelial Cell 0-2 Amorphous Sediment Trace Urine Bacteria 1+ Hyaline Casts 0-2 Granular Casts 0-2 Urine Mucus Trace SARS CoV-2 RNA Rapid SHABANA Negative 10/07/23 12:02 WBC 11.22 H RBC 4.63 Hgb 14.7 Hct 46.1 MCV 99.6 H MCH 31.7 H MCHC 31.9 RDW Coeff of Gracie 13.2 Plt Count 210 Immature Gran % (Auto) 0.3 Neut % (Auto) 82.2 H Lymph % (Auto) 10.2 [place] % (Auto) 6.8 Eos % (Auto) 0.1 Baso % (Auto) 0.4 Neut # (Auto) 9.2 H Lymph # (Auto) 1.1 [place] # (Auto) 0.8 Eos # (Auto) 0.0 Baso # (Auto) 0.0 Immature Gran # (Auto) 0.0 Sodium 137.0 Potassium 4.10 Chloride 99.0 Carbon Dioxide 28.0 Anion Gap 14.10 BUN 13.0 Creatinine 0.50 L Estimated GFR (MDRD) 117.00 BUN/Creatinine Ratio 26.00 Glucose 115.0 H Calcium 9.00 Total Bilirubin 0.90 AST 36.0 ALT 22.0 Alkaline Phosphatase 140.0 Total Protein 7.50 Albumin 3.70 Globulin 3.80 Albumin/Globulin Ratio 0.97 Urine Color Urine Clarity Urine pH Ur Specific Juliette Urine Protein Urine Glucose (UA) Urine Ketones Urine Blood Urine Nitrite Urine Bilirubin Urine Urobilinogen Ur Leukocyte Esterase Urine Microscopic RBC Urine Microscopic WBC Ur Squamous Epith Cells Ur Renal Epithelial Cell Amorphous Sediment Urine Bacteria Hyaline Casts Granular Casts Urine Mucus SARS CoV-2 RNA Rapid SHABANA Additional Comments Additional Comments: I have independently reviewed and interpreted the labs/EKGs/imaging ordered during this hospital stay. I have reviewed outside records that are available in our EMR that pertain to medical stay including imaging/notes/labs from previous visits. EXAM: CHEST ONE-VIEW History: Tachypnea FINDINGS: Compared with 08/25/2021. Normal cardiomediastinal contours. Normal pulmonary vasculature. Reticular opacities in the lungs, right greater than left. Consolidative change in the right midlung and right lower lobe also seen on prior. No acute chest wall abnormality. Impression: Underlying chronic obstructive pulmonary disease and scarring Consolidative change in the right lung suspect for pneumonia Active Medications Active Medications: Medications Generic Name Dose Route Start Last Admin Trade Name Freq PRN Reason Stop Dose Admin Acetaminophen 650 mg 10/07/23 14:24 10/07/23 16:33 Acetaminophen 325 Mg Tablet PO 650 mg Q4H PRN Administration Mild Pain Hydrocodone Bitart/Acetaminophen 0.5 tab 10/07/23 21:00 10/08/23 07:37 Hydrocodone Bit/Acetaminophen 5/325 Mg Tablet PO 0.5 tab BID PRN Administration MODERATE PAIN Alprazolam 0.25 mg 10/08/23 21:00 Alprazolam 0.25 Mg Tablet PO BEDTIME PRN ANXIETY Apixaban 2.5 mg 10/08/23 09:00 Apixaban 5 Mg Tab PO BID MAZIN Diltiazem HCl 30 mg 10/08/23 17:00 Diltiazem Hcl 30 Mg Tablet PO BIDAC2 MAZIN Donepezil HCl 5 mg 10/07/23 17:00 10/07/23 19:27 Donepezil Hcl 10 Mg Tablet PO Not Given DAILY [facility] Duloxetine HCl 30 mg 10/08/23 09:00 Duloxetine Hcl 30 Mg Capsule. PO DAILY [facility] Gabapentin 200 mg 10/07/23 21:00 10/07/23 23:02 Gabapentin 100 Mg Capsule PO Not Given BEDTIME [facility] Levofloxacin/Dextrose 750 mg in 150 mls @ 100 mls/hr 10/09/23 21:00 Levaquin 750 Mg/150 Ml D5w IV 10/12/23 20:59 Q48HR MAZIN Memantine 10 mg 10/07/23 20:00 10/07/23 23:02 Memantine Hcl 10 Mg Tablet PO Not Given QPM MAZIN Olanzapine 5 mg 10/07/23 14:59 10/07/23 17:25 Olanzapine 10 Mg Vial IM 5 mg ONCE PRN Administration Agitation Olanzapine 5 mg 10/07/23 21:19 Olanzapine 10 Mg Vial IM Q6HR PRN Agitation Ondansetron HCl 4 mg 10/07/23 14:24 Ondansetron Hcl/Pf 4 Mg/2 Ml Sdv IVP Q6H PRN Nausea / Vomiting Sodium Chloride 1 syr 10/08/23 05:25 10/08/23 05:30 0.9% Sodium Chloride 10 Ml Disp.Syrin IVF 1 syr Q8HR [facility] Administration Plan Plan: 1. CAP, right - Levaquin ordered. O2 PRN. 2. Weakness with frequent falls - Imaging negative, pt/ot ordered. 3. Worsening dementia - Likely worsened due to patient's husbands worsening condition and changes at home. Cont home meds. 4. Hypertension - Cont home meds 5. A fib RVR - Likely due to patient not taking medication at home. Cont home meds, will make adjustments if no improvement. DVT Prophylaxis: Renee Dispo: Awaiting insurance and placement. Review Statement Review Statement: I have personally discussed and reviewed the patient's visit/currently labs/imaging/decision making with Dr. Concepcion, my supervising attending. Greater that 50 minutes spent with patient, 50% of the time spent with this patient was devoted to counseling and coordination of care.
--- NOTE | 2023-10-08 12:00 | DCSUM ---
Admission Date Admission Date: 10/07/23 Discharge Date Discharge Date: 10/08/23 Admission Diagnosis Admission Diagnosis: 1. Weakness with frequent falls Discharge Diagnosis Discharge Diagnosis: 1. CAP, right 2. Weakness with frequent falls 3. Worsening dementia 4. Hypertension 5. A fib Hospital Provider Hospital Provider: RHONA HOLLY PA-C, [facility] Primary Care Physician Primary Care Physician: SHAD CONCEPCION MD Summary of History and Physical Summary of History and Physical: The patient is an 87-year-old female with past medical history of A-fib, dementia, hyperlipidemia, chronic anemia, hypertension, COPD, anxiety who presents from home with a friend Shaneka for worsening dementia and falls. The patient lives at home with her who is unfortunately dying from metastatic cancer. He is currently under hospice care and is reportedly unconscious and unable to make decisions at this time. The patient, Maria R, has had a very significant decline in her mentation in the last few weeks with all of this going on. Per Shaneka, she has had multiple falls yesterday witnessed by the hospice nurse. She hit her head. She was very frantic and spiraling over them moving furniture in the home to rearrange her 's bed. She was threatening to burn the house down. She has been difficult to redirect. In the ER she had a CT of the head and x-ray of the pelvis which were unremarkable. Labs unremarkable. UA did not show infection. On my evaluation the patient initially is able to track with conversation but is quickly confused and unable to give any details. She is aware that her is at home and very sick however she does not bring up that he has cancer. She also states that he is home alone and needs her to help him however he does have 24-hour care at this time. She refers to the other lady in the room with us as Nellie although her name is Shaneka. The patient is unable to tell me any of her past medical history or what current medications she takes. She does not recall any falls yesterday although they were witnessed by a reliable historian. She is frustrated by being here and asks to speak with her PCP Dr. Concepcion however later she refers to him as Dr. Burr. Shaneka has concerns about her safety at home. Spoke with Blas, the patient's [id number]. He states that he signed paperwork today to become the POA over Ed, the patient's who is on hospice since he nor Maria R can make decisions any longer. He states that he is helping his brother at this time but will be unable to care for Maria R going forward. He states that the 24-hour care that they have for Ed at this time will not be sustainable long-term for Maria R. He states that she likely will need to go to a residential to be safe and have care. She has a daughter but has not been involved with her in a long time and describes her relationship as "volatile." She does have a couple brothers Axel and Ned. Axel is in [place], Ned is nearby. It was decided to admit the patient as there is no safe discharge plan at this time. There is no one that can be responsible for caring for Maria R at home. With her worsening dementia during these recent changes she has become unsafe to be at home. Blas states that he will be a surrogate decision maker if needed. We reached out to Axel the brother in [place] and he does not feel comfortable being a surrogate decision maker due to his age and comorbidities. He suggested reaching out to Ned as he is the "baby of the family". The number given for Ned is not in service. We are also attempting to find a number to reach out to the patient's daughter Leslie as she is technically next of kin. If all fails, Blas is agreeable. Hospital Course Subjective: The patient's daughter, Leslie, was reached. She was agreeable to be surrogate decision maker for the patient, as she is next of kin. She is in agreement with residential placement, as is Blas. Patient's , Ed, has apparently had some moments of clarity and is also aware she will be going to the residential. Patient did have a CXR which showed some pneumonia and she was started on levaquin. HR was mildly elevated, likely due to not taking her medication. This is better today after receiving her medications. Will discharge to [facility] on levaquin for 3 more days starting tomorrow. Patient will potentially need to start the process of a formal guardian going forward. Appearance: No Apparent Distress and Alert HEENT: MMM CVS: Other (+irregularly irregular ) Abdomen: Soft and Non-Tender Respiratory: Other (+takes shallow breaths but able to carry on lengthy conversation without dyspnea ) Extremities: No Edema Vital Signs: Most Recent Vital Signs Temperature 98.2 F 10/08/23 10:00 Temperature Source Temporal Artery Scan 10/08/23 10:00 Temperature Source Oral 10/07/23 11:21 Pulse Rate 109 H 10/08/23 10:00 Respiratory Rate 28 H 10/08/23 10:00 Blood Pressure 128/64 10/08/23 10:00 Blood Pressure Mean 85 10/08/23 10:00 Blood Pressure Left Arm 147/83 10/07/23 15:01 Blood Pressure Location Left Arm 10/08/23 10:00 Blood Pressure Position Sitting 10/08/23 10:00 O2 Sat by Pulse Oximetry 95 10/08/23 10:00 Oxygen Delivery Method Nasal Cannula 10/08/23 11:54 Oxygen Flow Rate 1 10/08/23 10:00 Height 5 ft 10/07/23 15:01 Weight 84 lb 14.4 oz 10/07/23 15:01 Telemetry Type Remote Telemetry 10/08/23 07:00 Telemetry Monitoring Continues 10/08/23 07:00 Irregular Telemetry Rate (Approximate) 90-100 BPM 10/08/23 07:00 Telemetry Heart Rate 70 08/18/21 19:00 Telemetry SPO2 99 10/08/23 00:40 EKG QRS Interval 0.07 10/08/23 07:00 Telemetry Strip Reading A- Fib 10/08/23 07:00 Imaging: EXAM: CHEST ONE-VIEW History: Tachypnea FINDINGS: Compared with 08/25/2021. Normal cardiomediastinal contours. Normal pulmonary vasculature. Reticular opacities in the lungs, right greater than left. Consolidative change in the right midlung and right lower lobe also seen on prior. No acute chest wall abnormality. Impression: Underlying chronic obstructive pulmonary disease and scarring Consolidative change in the right lung suspect for pneumonia EXAM: CT HEAD WITHOUT CONTRAST TECHNIQUE: Noncontrast CT of the head with multiple reformats. HISTORY: Fall injury COMPARISON: 08/25/2021 FINDINGS: Ventricular size mildly prominent but proportional to involutional changes. Atrophy which is global. White matter attenuation changes likely secondary to chronic small vessel ischemia. Appears progressed or more apparent compared to 08/25/2021. Christopher-white matter interfaces are preserved with no evidence of acute infarct. No evidence of intracranial hemorrhage. No midline shift or mass effect. No ectopia. Paranasal sinuses are clear. Mastoid opacification is present on the right. Appears chronic. Orbital contents are normal. The calvarium is intact. IMPRESSION: 1. Atrophy 2. White matter attenuation likely secondary to chronic small vessel ischemia. 3. No acute intracranial findings. 4. Chronic partial opacification mastoid air cells right side. EXAM: X-RAY 4 VIEWS OF THE PELVIS AND BILATERAL HIP. HISTORY: Pain status post injury . COMPARISON: None. FINDINGS: No acute fracture or dislocation. No trabecular disruption or cortical offset in the femoral neck to suggest fracture. The bilateral femoral heads are located in the osseous acetabulum. A calcified structure is present involving the left side of the pelvis, likely representing calcified uterine fibroid. Joint space narrowing is seen with osteophyte formation. Decreased mineralization is seen. IMPRESSION: No acute fracture or dislocation. Mild degenerative changes involving both hips. Lab Results Last 24 Hours: 10/08/23 10/07/23 10/07/23 05:25 13:12 13:00 WBC 9.89 RBC 4.72 Hgb 14.9 Hct 47.1 H MCV 99.8 H MCH 31.6 H MCHC 31.6 L RDW Coeff of Gracie 13.1 Plt Count 258 Immature Gran % (Auto) 0.3 Neut % (Auto) 67.7 Lymph % (Auto) 22.4 Ashe % (Auto) 8.5 Eos % (Auto) 0.9 Baso % (Auto) 0.2 Neut # (Auto) 6.7 Lymph # (Auto) 2.2 Ashe # (Auto) 0.8 Eos # (Auto) 0.1 Baso # (Auto) 0.0 Immature Gran # (Auto) 0.0 Sodium 139.4 Potassium 3.51 Chloride 100.0 Carbon Dioxide 33.0 H Anion Gap 9.91 BUN 11.5 Creatinine 0.58 L Estimated GFR (MDRD) 99.00 BUN/Creatinine Ratio 19.82 Glucose 100.9 Calcium 9.13 Total Bilirubin 0.89 AST 32.4 ALT 19.9 Alkaline Phosphatase 125.1 Total Protein 7.04 Albumin 3.51 Globulin 3.53 Albumin/Globulin Ratio 0.99 Urine Color Dark Urine Clarity Clear Urine pH 6.5 Ur Specific Ridge >=1.030 Urine Protein 3+ H Urine Glucose (UA) Negative Urine Ketones 2+ H Urine Blood Trace-intact H Urine Nitrite Negative Urine Bilirubin 1+ H Urine Urobilinogen 4.0 H Ur Leukocyte Esterase Negative Urine Microscopic RBC 5-10 Urine Microscopic WBC 2-5 Ur Squamous Epith Cells 10-20 Ur Renal Epithelial Cell 0-2 Amorphous Sediment Trace Urine Bacteria 1+ Hyaline Casts 0-2 Granular Casts 0-2 Urine Mucus Trace SARS CoV-2 RNA Rapid SHABANA Negative 10/07/23 12:02 WBC 11.22 H RBC 4.63 Hgb 14.7 Hct 46.1 MCV 99.6 H MCH 31.7 H MCHC 31.9 RDW Coeff of Gracie 13.2 Plt Count 210 Immature Gran % (Auto) 0.3 Neut % (Auto) 82.2 H Lymph % (Auto) 10.2 Ashe % (Auto) 6.8 Eos % (Auto) 0.1 Baso % (Auto) 0.4 Neut # (Auto) 9.2 H Lymph # (Auto) 1.1 Ashe # (Auto) 0.8 Eos # (Auto) 0.0 Baso # (Auto) 0.0 Immature Gran # (Auto) 0.0 Sodium 137.0 Potassium 4.10 Chloride 99.0 Carbon Dioxide 28.0 Anion Gap 14.10 BUN 13.0 Creatinine 0.50 L Estimated GFR (MDRD) 117.00 BUN/Creatinine Ratio 26.00 Glucose 115.0 H Calcium 9.00 Total Bilirubin 0.90 AST 36.0 ALT 22.0 Alkaline Phosphatase 140.0 Total Protein 7.50 Albumin 3.70 Globulin 3.80 Albumin/Globulin Ratio 0.97 Urine Color Urine Clarity Urine pH Ur Specific Ridge Urine Protein Urine Glucose (UA) Urine Ketones Urine Blood Urine Nitrite Urine Bilirubin Urine Urobilinogen Ur Leukocyte Esterase Urine Microscopic RBC Urine Microscopic WBC Ur Squamous Epith Cells Ur Renal Epithelial Cell Amorphous Sediment Urine Bacteria Hyaline Casts Granular Casts Urine Mucus SARS CoV-2 RNA Rapid SHABANA Discharge Instructions Discharge Planning: Discharge Planning > [address] Tre Concepcion. Discharge Medications: Medications at Discharge (Home Meds & RX) Discharge Plan Discharge Discharge Orders: Discharge Patient (ONCE); Ordered 10/08/23 Ordered By: RHONA HOLLY Activity Restrictions/Additional Instructions: DISCHARGE TO SNF DX: PNEUMONIA, WEAKNESS, FALLS, DEMENTIA DIET: HEART HEALTHY ACTIVITY: TOLERATED, FALL PRECAUTIONS O2 PRN 3 MORE DAYS OF LEVAQUIN STARTING 10/08 Patient Disposition: TRANSFER SNF Prescriptions: New levofloxacin 750 mg tablet 750 mg PO Q48H 3 Days Qty: 2 0RF Rx Instructions: Start 10/09/23 Continued hydrocodone-acetaminophen 5-325 mg tablet 0.5 tab PO BID PRN (Reason: pain) Qty: 45 0RF gabapentin 100 mg capsule See Rx Instructions .ROUTE .COMPLEX Qty: 60 2RF Dose Instruction: TAKE TWO CAPSULES AT BEDTIME GENERIC FOR NEURONTIN Rx Instructions: TAKE TWO CAPSULES AT BEDTIME GENERIC FOR NEURONTIN duloxetine 30 mg capsule,delayed release(DR/EC) See Rx Instructions .ROUTE .COMPLEX Qty: 30 2RF Dose Instruction: TAKE 1 CAPSULE DAILY Rx Instructions: TAKE 1 CAPSULE DAILY diltiazem HCl 30 mg tablet See Rx Instructions .ROUTE .COMPLEX Qty: 60 2RF Dose Instruction: TAKE ONE TABLET TWICE DAILY Rx Instructions: TAKE ONE TABLET TWICE DAILY donepezil [Aricept] 5 mg tablet 5 mg PO QDAY Qty: 30 2RF memantine 10 mg tablet 10 mg PO QPM Qty: 30 2RF alprazolam 0.25 mg tablet 0.25 mg PO QHS PRN (Reason: anxiety) Qty: 15 0RF Eliquis 2.5 mg tablet See Rx Instructions .ROUTE .COMPLEX Qty: 60 2RF Dose Instruction: TAKE ONE TABLET TWICE DAILY Rx Instructions: TAKE ONE TABLET TWICE DAILY mecobalamin (vitamin B12) 1,000 mcg tablet,chewable 1,000 mcg PO QDAY Did you review [place] [employer] for ALL controlled substances?: Not Applicable Discussed opioids are addictive and Narcan is available by prescription or from pharmacy.: No Condition: Good
[2023-10-08] MEDS ORDERED: LEVAQUIN PO SCH (12:05)
[2023-10-08] MEDS: CARDIZEM PO ONE (14:58)
[2023-10-08 16:24] VITALS: BP 126/78; PULSE 120; RESP 34; TEMP 99.6
[2023-10-08] MEDS ORDERED: CARDIZEM PO SCH (17:00)
[2023-10-08] MEDS ORDERED: LEVAQUIN 750 MG/150 ML D5W 750 MG/150 ML BAG IV SCH (21:00)
[2023-10-08] MEDS ORDERED: XANAX PO PRN (21:00)
[2023-10-09] MEDS ORDERED: LEVAQUIN 750 MG/150 ML D5W 750 MG/150 ML BAG IV SCH (21:00)
== END 2023-10-08 15:05 ==
LOC: ED 10:39 → SCU 10:39
PROVIDERS: ADMIT Hospitalist; ATTEND Physician Assistant
DX: R29.6 Repeated falls; S09.90XA Unspecified injury of head, initial encounter; M16.0 Bilateral primary osteoarthritis of hip; I48.91 Unspecified atrial fibrillation; M62.81 Muscle weakness (generalized); D64.9 Anemia, unspecified; M25.552 Pain in left hip; R26.81 Unsteadiness on feet; F17.210 Nicotine dependence, cigarettes, uncomplicated; M25.551 Pain in right hip; E78.5 Hyperlipidemia, unspecified; F03.90 Unspecified dementia, unspecified severity, without behavioral disturbance, psychotic disturbance, mood disturbance, and anxiety; J18.9 Pneumonia, unspecified organism; Z51.81 Encounter for therapeutic drug level monitoring; F41.9 Anxiety disorder, unspecified; J44.9 Chronic obstructive pulmonary disease, unspecified; Z79.01 Long term (current) use of anticoagulants; I10 Essential (primary) hypertension; Z79.899 Other long term (current) drug therapy